=== PATIENT | female | born 1985 | race Caucasian/White ===

== ENCOUNTER 2018-02-14 08:14 | Day surgery (SDC) | payer SELFPAY, BC ==
[~2018-02-14 08:14] MED LIST: Acetaminophen 1,000 MG in Premix Bag 1 BAG IV SCH; Acetaminophen/HYDROcodone 325-5 MG Tab PO PRN; BACITRACIN IRR SCH; Bupivacaine 0.25%/EPINEPHrine 1:200,000 10 ML SDV INJECT ONE; Gentamicin 40 MG/ML 2 ML Vial ONE; Lactated Ringers 1,000 ML IV SCH; Lidocaine 2% 5 ML SDV ONE; Midazolam 1 MG/ML 2 ML SDV ONE; Ondansetron 4 MG/2 ML SDV ONE; Propofol 200 MG/20 ML SDV ONE; Rocuronium 10 MG/ML 10 ML Syringe ONE; SODIUM CHLORIDE 0.9% IRR SCH; Scopolamine 1.5 MG Transdermal Patch TRDERM PRN; ceFAZolin 1,000 MG VIAL ONE; ceFAZolin 2 GM in Premix Bag 1 BAG IV ONE; fentaNYL 250 MCG/5 ML SDV ONE
--- NOTE | 2018-02-14 08:41 | PCM.PREANE ---
Preanesthetic Assessment - Anesthesia/Transfusion/Family Hx Anesthesia History: Prior Anesthesia Without Reaction Family History of Anesthesia Reaction: No Transfusion History: No Prior Transfusion(s) - Review of Systems General: No Symptoms Pulmonary: No Symptoms Cardiovascular: No Symptoms Gastrointestinal: No Symptoms Neurological: No Symptoms Other: Reports: None - Physical Assessment NPO Status Date: 02/13/18 Height: 1.8 m Weight: 73.028 kg ASA Class: 2 Mental Status: Alert & Oriented x3 Airway Class: Mallampati = 1 Dentition: Reports: Normal Dentition ROM/Head Extension: Full Lungs: Clear to Auscultation, Normal Respiratory Effort Cardiovascular: Regular Rate, Regular Rhythm - Allergies Allergies/Adverse Reactions: Allergies Allergy/AdvReac Type Severity Reaction Status Date / Time No Known Allergies Allergy Verified 02/09/18 08:30 - Anesthesia Plan Pre-Op Medication Ordered: None - Acknowledgements Anesthesia Type Planned: General Anesthesia Pt an Appropriate Candidate for the Planned Anesthesia: Yes Alternatives and Risks of Anesthesia Discussed w Pt/Guardian: Yes Pt/Guardian Understands and Agrees with Anesthesia Plan: Yes Additional Comments: PMH: gerd PreAnesthesia Questionnaire HEENT History: Reports: Other (See Below) Other HEENT History: wears glasses/contacts Gastrointestinal History: Reports: GERD Musculoskeletal History: Reports: None Psychiatric History: Reports: Anxiety, Depression - Past Surgical History Head Surgeries/Procedures: Reports: None HEENT Surgical History: Reports: Oral Surgery Musculoskeletal Surgical History: Reports: Arthroscopic Knee - SUBSTANCE USE Smoking Status *Q: Never Smoker Recreational Drug Use History: No - HOME MEDS Home Medications: Home Meds Escitalopram [Lexapro] 10 mg PO DAILY 02/09/18 [History] Omeprazole Magnesium [Prilosec Otc] 20 mg PO BID 02/09/18 [History] - CURRENT (IN HOUSE) MEDS Current Meds: Current Medications Hydrocodone Bitart/Acetaminophen ([employer] 325-5 Mg) 1 tab PO Q4H PRN PRN Reason: Pain Bacitracin 50,000 units/ (Sodium Chloride) 1,000 mls @ 71.99 mls/hr IRR ONETIME PHYLICIA Lactated Ringer's (Ringers, Lactated) 1,000 mls @ 125 mls/hr IV ASDIRECTED PHYLICIA Acetaminophen 1,000 mg/ Premix 100 mls @ 400 mls/hr IV .ONETIME PHYLICIA Scopolamine (Transderm-Scop) 1.5 mg TRDERM .ONCE PRN PRN Reason: Post Op Nausea Discontinued Medications Bupivacaine HCl/Epinephrine Bitart (Marcaine 0.25%/Epinephrine 1:200,000) 10 ml INJECT ONETIME ONE Stop: 02/14/18 08:01 Cefazolin Sodium (Ancef) 2,000 mg .XX ONETIME ONE Stop: 02/14/18 08:01 Fentanyl (Sublimaze) Confirm Administered Dose 250 mcg .ROUTE .STK-MED ONE Stop: 02/14/18 07:29 Gentamicin Sulfate (Gentamicin) 80 mg .XX ONETIME ONE Stop: 02/14/18 08:01 Cefazolin Sodium/Dextrose 2 gm (/ Premix) 50 mls @ 100 mls/hr IV ONETIME ONE Stop: 02/14/18 08:29 Lidocaine (Xylocaine-Mpf 2%) Confirm Administered Dose 5 ml .ROUTE .STK-MED ONE Stop: 02/14/18 07:28 Midazolam HCl (Versed 1 Mg/Ml) Confirm Administered Dose 2 mg .ROUTE .STK-MED ONE Stop: 02/14/18 07:28 Ondansetron HCl (Zofran) Confirm Administered Dose 4 mg .ROUTE .STK-MED ONE Stop: 02/14/18 07:28 Propofol (Diprivan 20 Ml) Confirm Administered Dose 200 mg .ROUTE .STK-MED ONE Stop: 02/14/18 07:28 Rocuronium [place] (Zemuron) Confirm Administered Dose 100 mg .ROUTE .STK-MED ONE Stop: 02/14/18 07:28
[2018-02-14] MEDS ORDERED: ceFAZolin/Dextrose,Iso-Osmotic 2 GM/50 ML Duplex Bag IV ONE (08:52)
[2018-02-14] MEDS ORDERED: Dexamethasone 4 MG/ML 5 ML MDV ONE (09:30)
[2018-02-14] MEDS ORDERED: diphenhydrAMINE 50 MG/ML SDV ONE (09:30)
[2018-02-14] MEDS ORDERED: HYDROmorphone 2 MG/ML SDV ONE (09:34)
[2018-02-14] MEDS ORDERED: Ketorolac 30 MG/ML SDV ONE (09:38)
[2018-02-14] MEDS ORDERED: fentaNYL 100 MCG/2 ML SDV IVPUSH PRN (09:58)
--- NOTE | 2018-02-14 12:04 | PCM48HPAN ---
Post Anesthesia Note - EVALUATION WITHIN 48HRS OF ANESTHETIC Vital Signs in Normal Range: Yes Patient Participated in Evaluation: Yes Respiratory Function Stable: Yes Airway Patent: Yes Cardiovascular Function Stable: Yes Hydration Status Stable: Yes Pain Control Satisfactory: Yes Nausea and Vomiting Control Satisfactory: Yes Mental Status Recovered: Yes Resp Rate: 13
--- NOTE | 2018-02-14 12:04 | PCM.POSTAN ---
POST ANESTHESIA ASSESSMENT - MENTAL STATUS Mental Status: Alert, Oriented - RESPIRATORY Respiratory Status: Respiratory Rate WNL, Airway Patent, O2 Saturation Stable - CARDIOVASCULAR CV Status: Pulse Rate WNL, Blood Pressure Stable - GASTROINTESTINAL GI Status: No Symptoms - POST OP HYDRATION Hydration Status: Adequate & Stable
--- NOTE | 2018-02-21 14:14 | PCM.OPNOTE ---
- General Post-Op/Procedure Note Date of Surgery/Procedure: 02/14/18 Operative Procedure(s): bilateral silicone subglandular breast augmentation Pre Op Diagnosis: cosmetic Post-Op Diagnosis: Same Anesthesia Technique: General ET Tube, Local Primary Surgeon: Amelia Camacho Complications: None Condition: Good
--- NOTE | 2018-02-22 08:56 | OR ---
SURGEON: MIGUEL GARCIA MD DATE OF PROCEDURE: 02/14/2018 PREOPERATIVE DIAGNOSIS: Desire for bilateral breast augmentation. POSTOPERATIVE DIAGNOSIS: Desire for bilateral breast augmentation. PROCEDURE: Bilateral silicone subglandular breast augmentation. ANESTHESIA: General ET tube with local. INDICATIONS: Ms. Ching is a 32-year-old female, seen today in evaluation for bilateral breast augmentation. Risks and benefits were discussed with her in detail including, but not limited to, bleeding, infection, damage to underlying or overlying structures, possible need for future interventions, and possible scarring. She does understand the implants or medical devices, and we will add at some point in her lifetime, actually failed. She has chosen bilateral silicone breast implants in the subglandular plane. All questions answered and informed consent obtained. PROCEDURE IN DETAIL: After informed consent were obtained and placed on the chart, the patient was brought to the operating theater and laid in the supine position. After adequate general anesthesia was obtained, the area was prepped and draped and a time-out was completed to confirm side and site. Attention was then paid to the breast borders. They were marked clearly with an inframammary fold incision marked at half the distance of the circumference of the implant. This was positioned in the inframammary fold, and the area was anesthetized with 0.25% Marcaine with epinephrine in a field block. After adequate anesthesia, a 15 blade was used to dissect through the skin and Bovie electrocautery through the subcutaneous tissues until breach of the subglandular plane. Dissection was carried in the medial and lateral positions in order to allow development of the pocket. Once the pocket was developed, meticulous hemostasis was obtained, the area was copiously irrigated with antibiotic solution and packed with epinephrine-soaked laps. While the epinephrine-soaked laps were sitting on the right side, attention was then paid to the dissection on the left. A symmetric dissection was undertaken using first a 15 blade through the skin and then Bovie electrocautery through the subcutaneous tissues. Under direct visualization and extended to Bovie, and lighted mammary retractors were used to further dissect the pocket. Once completed, meticulous hemostasis was obtained, the area was copiously irrigated with antibiotic solution and packed with epinephrine-soaked laps. Attention was then paid back to the right side. The epinephrine-soaked laps were removed and a 3-0 PDS suture was used to anchor the inferomedial and inferolateral breast poles to prevent migration of the implant here. Once this was completed, a no-touch technique with a Clifton funnel was used to place the silicone implants in the subglandular plane with Prateek retraction. Once adequately placed, appropriate position was confirmed and the second breast implant was placed on the left side in the same no-touch technique fashion. Once adequately placed on bilateral sides, the patient was sat up into a sitting position to ensure symmetry. Once symmetry was appreciated, the patient was laid back down into the supine position, and the wounds were closed using deep 3 - 0 Monocryl for the fascia, deep 3-0 Monocryl for the dermis, and a running 4-0 subcuticular for the skin. The wound was then dressed with Steri-Strips, fluffs, and a compression bra. The patient tolerated this well. All counts and needles were correct at the end of the case. IMPLANT INFORMATION: SRM 485 SN Left [id number] Right [id number] FOLLOWUP INSTRUCTIONS: The patient will see us tomorrow in clinic sooner if any problems, questions, or concerns. Prescription for pain control was provided as well as nausea medication. RENETTA / JAY /[id number] SELINA
== END 2018-02-14 12:20 | disposition home or self-care (01) ==
LOC: MW.SDS 08:14
PROVIDERS: ATTEND Plastic Surgery
DX: Z41.1 Encounter for cosmetic surgery (principal); K21.9 Gastro-esophageal reflux disease without esophagitis; F32.9 Major depressive disorder, single episode, unspecified; Z79.899 Other long term (current) drug therapy; Z88.8 Allergy status to other drugs, medicaments and biological substances
CPT/HCPCS: 19325; 81025; A9270; C1789; J0690; J1100; J1170; J1200; J1885; J2250; J2405; J3010; J7120; 00402; J2704

== ENCOUNTER 2018-12-27 09:11 | Day surgery (SDC) | payer BC ==
[~2018-12-27 09:11] MED LIST changes: -Acetaminophen 1,000 MG in Premix Bag 1 BAG IV SCH; -Acetaminophen/HYDROcodone 325-5 MG Tab PO PRN; -BACITRACIN IRR SCH; -Bupivacaine 0.25%/EPINEPHrine 1:200,000 10 ML SDV INJECT ONE; -Gentamicin 40 MG/ML 2 ML Vial ONE; -Ondansetron 4 MG/2 ML SDV ONE; -Rocuronium 10 MG/ML 10 ML Syringe ONE; -SODIUM CHLORIDE 0.9% IRR SCH; -Scopolamine 1.5 MG Transdermal Patch TRDERM PRN; -ceFAZolin 1,000 MG VIAL ONE; -ceFAZolin 2 GM in Premix Bag 1 BAG IV ONE; -fentaNYL 250 MCG/5 ML SDV ONE
--- NOTE | 2018-12-27 10:25 | PCM.PREANE ---
Preanesthetic Assessment - Anesthesia/Transfusion/Family Hx Anesthesia History: Prior Anesthesia Without Reaction Other Type of Anesthesia Reaction Comment: "aunt had problems with anesthesia, but unsure what", "will ask her" Family History of Anesthesia Reaction: No Transfusion History: No Prior Transfusion(s) Intubation History: Unknown - Review of Systems General: No Symptoms Pulmonary: No Symptoms Cardiovascular: No Symptoms Gastrointestinal: No Symptoms, Other (follow up of esophagitis and hiatal hernia ) Neurological: No Symptoms Other: Reports: None - Physical Assessment NPO Status Date: 12/27/18 NPO Status Time: 06:30 O2 Sat by Pulse Oximetry: 100 Respiratory Rate: 18 Vital Signs: Last Vital Signs Temp 36.8 C 12/27/18 09:30 Pulse 67 12/27/18 09:30 Resp 18 12/27/18 09:30 BP 128/80 12/27/18 09:30 Pulse Ox 100 12/27/18 09:30 Height: 1.8 m Weight: 75.296 kg ASA Class: 2 Mental Status: Alert & Oriented x3 Airway Class: Mallampati = 1 Dentition: Reports: Normal Dentition, [place](s) (x1 left lower - lucy) Thyro-Mental Finger Breadths: 3 Mouth Opening Finger Breadths: 3 ROM/Head Extension: Full Lungs: Clear to Auscultation, Normal Respiratory Effort Cardiovascular: Regular Rate, Regular Rhythm - Lab Values: Laboratory Last Values Urine HCG, Qual NEGATIVE (NEGATIVE) 12/27/18 09:12 - Allergies Allergies/Adverse Reactions: Allergies Allergy/AdvReac Type Severity Reaction Status Date / Time No Known Allergies Allergy Verified 12/24/18 07:40 - Blood Blood Available: No - Anesthesia Plan Pre-Op Medication Ordered: None - Acknowledgements Anesthesia Type Planned: MAC Pt an Appropriate Candidate for the Planned Anesthesia: Yes Alternatives and Risks of Anesthesia Discussed w Pt/Guardian: Yes Pt/Guardian Understands and Agrees with Anesthesia Plan: Yes PreAnesthesia Questionnaire HEENT History: Reports: Other (See Below) Other HEENT History: wears glasses/contacts Cardiovascular History: Reports: None Respiratory History: Reports: None Gastrointestinal History: Reports: GERD, Other (See Below) (h/o gastric ulcer, h /o dysphagia) Genitourinary History: Reports: None [employer] History: Reports: Musculoskeletal History: Reports: None Neurological History: Reports: None Psychiatric History: Reports: Anxiety, Depression Endocrine/Metabolic History: Reports: None Hematologic History: Reports: None Immunologic History: Reports: None Oncologic (Cancer) History: Reports: None Dermatologic History: Reports: None - Past Surgical History Head Surgeries/Procedures: Reports: None HEENT Surgical History: Reports: Oral Surgery Other HEENT Surgeries/Procedures: [place] tooth extraction Cardiovascular Surgical History: Reports: None Respiratory Surgical History: Reports: None GI Surgical History: Reports: EGD (06/2017) Female Surgical History: Reports: Breast Implant Endocrine Surgical History: Reports: None Neurological Surgical History: Reports: None Musculoskeletal Surgical History: Reports: Arthroscopic Knee Other Musculoskeletal Surgeries/Procedures:: Left patella reconstruction Dermatological Surgical History: Reports: None - SUBSTANCE USE Smoking Status *Q: Never Smoker Recreational Drug Use History: No - HOME MEDS Home Medications: Home Meds Omeprazole Magnesium [Prilosec Otc] 20 mg PO DAILY 02/09/18 [History] Multivitamin [Multivitamins] 1 tab PO DAILY 12/24/18 [History] - CURRENT (IN HOUSE) MEDS Current Meds: Current Medications Lactated Ringer's (Ringers, Lactated) 1,000 mls @ 100 mls/hr IV ASDIRECTED PHYLICIA Last Admin: 12/27/18 09:50 Dose: 100 mls/hr Discontinued Medications Lidocaine (Xylocaine-Mpf 2%) Confirm Administered Dose 5 ml .ROUTE .STK-MED ONE Stop: 12/27/18 07:55 Midazolam HCl (Versed 1 Mg/Ml) Confirm Administered Dose 2 mg .ROUTE .STK-MED ONE Stop: 12/27/18 07:56 Propofol (Diprivan 20 Ml) Confirm Administered Dose 400 mg .ROUTE .STK-MED ONE Stop: 12/27/18 07:55
--- NOTE | 2018-12-27 11:32 | PCM.OPNOTE ---
- General Post-Op/Procedure Note Date of Surgery/Procedure: 12/27/18 Operative Procedure(s): EGD with biopsies of antrum, fundus, and esophagus Findings: Hiatal hernia with no evidence of esophagitis Pre Op Diagnosis: Hiatal hernia with reflux Post-Op Diagnosis: same Anesthesia Technique: MAC Primary Surgeon: Bonnie Farley Numerical Control Machine Operator: Shannon Carreon Condition: Good
--- NOTE | 2018-12-27 11:33 | PCM.OPNOTE ---
- General Post-Op/Procedure Note Date of Surgery/Procedure: 12/27/18 Operative Procedure(s): Diagnostic EGD Findings: Hiatal hernia with reflux. No sign of esophagitis Pre Op Diagnosis: Hiatal hernia with reflux and esophagitis Post-Op Diagnosis: Hiatal hernia with reflux. Anesthesia Technique: [facility] [place] Primary Surgeon: Bonnie Farley Condition: Good
--- NOTE | 2018-12-27 18:30 | OR ---
SURGEON: JOHN JOAQUIN MD DATE OF PROCEDURE: 12/27/2018 PREOPERATIVE DIAGNOSIS: Hiatal hernia with reflux and esophagitis. POSTOPERATIVE DIAGNOSIS: Hiatal hernia with reflux. PROCEDURE PERFORMED: Diagnostic esophagogastroduodenoscopy. ANESTHESIA: MAC. INSTRUMENT USED: Olympus endoscope. EXTENT OF EXAM: To the second portion of duodenum. PREPARATION: Good. LIMITATIONS: None. INDICATION FOR EXAMINATION: The patient is a 33-year-old female who presents for a repeat EGD. During her last , she was found to have a hiatal hernia and severe erosive esophagitis. Since giving , she has had no further symptoms, but is concerned about ongoing reflux. We discussed the procedure, expected perioperative course, and risks including bleeding or perforation. The patient verbalized understanding and wishes to proceed. PROCEDURE IN DETAIL: The patient was brought into the endoscopy suite and placed in a beach chair position. A time-out was completed verifying the patient's name, age, date of , allergies, and procedure to be performed. A bite block was placed in the patient's mouth. Monitored anesthesia care was induced and continuous oxygen was provided via nasal cannula throughout the procedure. After adequate sedation was achieved, a well lubricated endoscope was placed in the patient's mouth and advanced under direct visualization to the level of the second portion of duodenum. This appeared normal and a photograph was taken. The scope was then straightened out and fully withdrawn while examining the color, texture, anatomy, and integrity mucosa of the upper GI tract. The duodenum was free of pathology. The scope was then brought in the stomach and a photograph taken of the pylorus as well as the GE junction. The patient was noted to have a hiatal hernia on retroflexion of the scope within the stomach. The gastric mucosa itself appeared free of inflammation or ulceration. Biopsies were taken of the gastric antrum, body, and fundus, and sent for histologic review and H. pylori testing. The scope was then brought into the hiatal hernia sac. This appeared to extend for 2-3 cm. A photograph was taken of this. A photograph was also taken of the Z-line. It was mildly irregular along one edge, but overall appeared normal. The scope was brought into the distal esophagus and a photograph was taken of the Z-line. A biopsy was taken 1 cm above the Z-line and sent to pathology, labeled esophageal biopsy. Overall, her distal esophagus appeared to be free of any signs of inflammation or ulceration. The remainder of the esophagus was free of pathology. The scope was removed and this procedure terminated. The patient tolerated it well and was taken to PACU in stable condition. ENDOSCOPIC DIAGNOSIS: Hiatal hernia with reflux. RECOMMENDATIONS: Follow up in clinic in 2 weeks. NAKUL THOMPSON /[id number]
== END 2018-12-27 13:00 | disposition home or self-care (01) ==
LOC: MW.SDS 09:11
PROVIDERS: ATTEND Surgery
DX: K21.0 Gastro-esophageal reflux disease with esophagitis (principal); K44.9 Diaphragmatic hernia without obstruction or gangrene; Z79.899 Other long term (current) drug therapy
CPT/HCPCS: 43239; 81025; J2001; J2250; J2704; J7120

== ENCOUNTER 2021-03-07 10:41 | Emergency (ER) | payer BC ==
--- NOTE | 2021-03-07 11:29 | EDM.PDOC ---
ED HPI GENERAL MEDICAL PROBLEM - General Chief Complaint: ENT Problem Stated Complaint: SINUS INFECTION Time Seen by Provider: 03/07/21 10:54 Source of Information: Reports: Patient History Limitations: Reports: No Limitations - History of Present Illness INITIAL COMMENTS - FREE TEXT/NARRATIVE: HISTORY AND PHYSICAL: History of present illness: Patient is a 35-year-old female who presents to the emergency department secondary to a 3-day history of sinus pain and pressure/runny nose and sneezing. Patient reports that about a week ago she started having allergy symptoms with sneezing and coughing but then her symptoms progressed to more sinus congestion and pressure the past 3 days. Patient has been taking Zyrtec with little relief. Patient states that she has had sinus infections in the past and was treated with antibiotics. Patient does endorse a history of seasonal allergies. Patient denies fever, chills, chest pain, shortness of breath, or cough. Denies headache, neck stiff ness, change in vision, syncope, or near syncope. Denies nausea, vomiting, abdominal pain, diarrhea, constipation, or dysuria. Has not noted any blood in urine or stool. Patient has been eating and drinking appropriately. Review of systems: As per history of present illness and below otherwise all systems reviewed and negative. Past medical history: As per history of present illness and as reviewed below otherwise noncontributory. Surgical history: As per history of present illness and as reviewed below otherwise noncontributory. Social history: See social history for further information Family history: As per history of present illness and as reviewed below otherwise noncontributory. Physical exam: General: Patient is alert, oriented, and in no acute distress. Patient sitting comfortably on exam table. Patient's vitals are stable and reviewed by me. HEENT: Atraumatic, normocephalic, pupils equal and reactive bilaterally, negative for conjunctival pallor or scleral icterus, mucous membranes moist, TMs normal bilaterally, throat clear, neck supple, nontender, trachea midline. No drooling or trismus noted. No meningeal signs. No hot potato voice noted. Pat ient is mildly tender to palpation over maxillary sinuses bilaterally with noted nasal congestion, erythematous and edematous turbinates noted bilaterally. Lungs: Clear to auscultation, breath sounds equal bilaterally, chest nontender. Heart: S1S2, regular rate and rhythm without overt murmur Abdomen: Soft, nondistended, nontender. Negative for masses or hepatosplenomegaly. Negative for costovertebral tenderness. Pelvis: Stable nontender. Genitourinary: Deferred. Rectal: Deferred. Skin: Intact, warm, dry. No lesions or rashes noted. Extremities: Atraumatic, negative for cords or calf pain. Neurovascular unremarkable. Neuro: Awake, alert, oriented. Cranial nerves II through XII unremarkable. Cerebellum unremarkable. Motor and sensory unremarkable throughout. Exam nonfocal. Notes: Discussed with patient the signs and symptoms that would prompt return to the emergency department. Discussed with patient the importance of follow-up with primary care. Voices understanding and is agreeable to plan of care. Denies any further questions or concerns at this time. Diagnostics: None Therapeutics: None Prescription: Medrol dose pack Impression: Sinusitis Plan: 1. Take medication as prescribed. Also use [id number] Flonase as directed and as discussed. 2. You can alternate ibuprofen and Tylenol as directed for pain and discomfort. 3. Follow-up with a primary care provider as discussed. Return to the ED as needed and as discussed. Definitive disposition and diagnosis as appropriate pending reevaluation and review of above. - Related Data Allergies Allergy/AdvReac Type Severity Reaction Status Date / Time No Known Allergies Allergy Verified 12/24/18 07:40 Home Meds: Home Meds Omeprazole Magnesium [Prilosec Otc] 20 mg PO DAILY 02/09/18 [History] Multivitamin [Multivitamins] 1 tab PO DAILY 12/24/18 [History] methylPREDNISolone [Medrol] 4 mg PO ASDIRECTED #1 dosepk 03/07/21 [Rx] Past Medical History HEENT History: Reports: Other (See Below) Other HEENT History: wears glasses/contacts Cardiovascular History: Reports: None Respiratory History: Reports: None Gastrointestinal History: Reports: GERD, Other (See Below) (h/o gastric ulcer, h/o dysphagia) Genitourinary History: Reports: None 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: Musculoskeletal History: Reports: None Neurological History: Reports: None Psychiatric History: Reports: Anxiety, Depression Endocrine/Metabolic History: Reports: None Hematologic History: Reports: None Immunologic History: Reports: None Oncologic (Cancer) History: Reports: None Dermatologic History: Reports: None - Past Surgical History Head Surgeries/Procedures: Reports: None HEENT Surgical History: Reports: Oral Surgery Other HEENT Surgeries/Procedures: wisdon tooth extraction Cardiovascular Surgical History: Reports: None Respiratory Surgical History: Reports: None GI Surgical History: Reports: EGD (06/2017) Female Surgical History: Reports: Breast Implant Endocrine Surgical History: Reports: None Neurological Surgical History: Reports: None Musculoskeletal Surgical History: Reports: Arthroscopic Knee Other Musculoskeletal Surgeries/Procedures:: Left patella reconstruction Dermatological Surgical History: Reports: None ED ROS GENERAL - Review of Systems Review Of Systems: Comprehensive ROS is negative, except as noted in HPI. ED EXAM, GENERAL - Physical Exam Exam: See Below (see dictation) Course - Vital Signs Last Recorded V/S: Last Vital Signs Temp 97.4 F 03/07/21 11:22 Pulse 92 03/07/21 11:22 Resp 18 03/07/21 11:22 BP 127/77 03/07/21 11:22 Pulse Ox 100 03/07/21 11:22 Departure - Departure Time of Disposition: 11:46 Disposition: Home, Self-Care 01 Clinical Impression: Sinusitis Qualifiers: Sinusitis location: unspecified location Chronicity: acute Recurrence: not specified as recurrent Qualified Code(s): J01.90 - Acute sinusitis, unspecified - Discharge Information Prescriptions: methylPREDNISolone [Medrol] 4 mg PO ASDIRECTED #1 dosepk Instructions: Sinusitis, Adult, [id number] Referrals: Nehemiah Ordonez MD [Primary Care Provider] - Forms: ED Department Discharge Additional Instructions: The following information is given to patients seen in the emergency department who are being discharged to home. This information is to outline your options for follow-up care. We provide all patients seen in our emergency department with a follow-up referral. The need for follow-up, as well as the timing and circumstances, are variable depending upon the specifics of your emergency department visit. If you don't have a primary care physician on staff, we will provide you with a referral. We always advise you to contact your personal physician following an emergency department visit to inform them of the circumstance of the visit and for follow-up with them and/or the need for any referrals to a consulting specialist. The emergency department will also refer you to a specialist when appropriate. This referral assures that you have the opportunity for follow-up care with a specialist. All of these measure are taken in an effort to provide you with optimal care, which includes your follow-up. Under all circumstances we always encourage you to contact your private physician who remains a resource for coordinating your care. When calling for follow-up care, please make the office aware that this follow-up is from your recent emergency room visit. If for any reason you are refused follow-up, please contact the [facility] Emergency Department at and asked to speak to the emergency department charge nurse. [facility] Primary [facility] [address] [place] [id number] [facility] [address] [place] [id number] 1. Take medication as prescribed. Also use [id number] Flonase as directed and as discussed. 2. You can alternate ibuprofen and Tylenol as directed for pain and discomfort. 3. Follow-up with a primary care provider as discussed. Return to the ED as needed and as discussed. Sepsis Event Note (ED) - Focused Exam Vital Signs: Vital Signs Temp Pulse Resp BP Pulse Ox 03/07/21 11:22 97.4 F 92 18 127/77 100
== END 2021-03-07 11:50 | disposition home or self-care (01) ==
LOC: MW.ED 10:41
DX: J01.90 Acute sinusitis, unspecified (principal); K21.9 Gastro-esophageal reflux disease without esophagitis; Z79.899 Other long term (current) drug therapy
CPT/HCPCS: 99283

== ENCOUNTER 2022-07-26 04:56 | Inpatient (IN) | payer BC ==
[2022-07-26] MEDS ORDERED: Sodium Chloride 0.9% 2.5 ML Syringe FLUSH PRN (05:30)
[2022-07-26] MEDS ORDERED: Carboprost Tromethamine 250 MCG/1 ML Amp IM PRN (05:30)
[2022-07-26] MEDS ORDERED: Butorphanol 1 MG/ML SDV IVPUSH PRN (05:30)
[2022-07-26] MEDS ORDERED: Lidocaine 1% 50 ML MDV INJECT PRN (05:30)
[2022-07-26] MEDS ORDERED: Oxytocin/0.9 % Sodium Chloride 30 UNIT/500 ML BAG IV SCH ×2 (05:30)
[2022-07-26] MEDS ORDERED: Sodium Chloride 0.9% 20 ML SDV IV PRN (05:30)
[2022-07-26] MEDS ORDERED: Terbutaline 1 MG/ML SDV SUBCUT PRN (05:30)
[2022-07-26] MEDS ORDERED: Misoprostol 200 MCG Tab PO PRN (05:30)
[2022-07-26] MEDS ORDERED: Ondansetron 4 MG/2 ML SDV IVPUSH PRN (05:30)
[2022-07-26] MEDS ORDERED: Sodium Chloride 0.9% 10 ML Syringe FLUSH PRN (05:30)
[2022-07-26] MEDS ORDERED: Tranexamic Acid 1,000 MG in Sodium Chloride 0.9% 100 ML IV PRN ×2 (05:30→16:36)
[2022-07-26] MEDS ORDERED: Water For Irrigation,Sterile 1,000 ML Container IRR PRN (05:30)
[2022-07-26] MEDS ORDERED: Methylergonovine 0.2 MG/1 ML Amp IM PRN ×2 (05:30→16:36)
[2022-07-26] MEDS: Lactated Ringers 1,000 ML IV SCH ×4 (05:45→11:09)
[2022-07-26] MEDS ORDERED: Ropivacaine/PF 400 MG/200 ML PCA ONE (10:23)
[2022-07-26] MEDS ORDERED: ePHEDrine 50 MG/ML SDV IVPUSH PRN (10:41)
[2022-07-26] MEDS ORDERED: Phenylephrine HCl In 0.9% NaCl 1 MG/10 ML Vial IVPUSH SCH (10:45)
[2022-07-26] MEDS ORDERED: Ropivacaine HCl/PF 400 MG in Premix Bag 1 BAG EPIDUR SCH (10:45)
[2022-07-26] MEDS ORDERED: Acetaminophen 500 MG Tab PO PRN ×2 (16:36)
[2022-07-26] MEDS ORDERED: Lanolin 100% Cream 7 GM Tube TOP PRN (16:36)
[2022-07-26] MEDS ORDERED: Docusate Sodium 100 MG Cap PO PRN (16:36)
[2022-07-26] MEDS ORDERED: Witch Hazel Medicated Pads 40/Jar TOP PRN (16:36)
[2022-07-26] MEDS ORDERED: Benzocaine/Menthol 20%-0.5% Spray 78 GM Cannister TOP PRN (16:36)
[2022-07-26] MEDS ORDERED: Ibuprofen 400 MG Tab PO PRN (16:36)
[2022-07-26] MEDS ORDERED: Bisacodyl 10 MG Supp RECTAL PRN (16:36)
[2022-07-26] MEDS: Ibuprofen 800 MG Tab PO PRN (18:55)
[2022-07-27] MEDS: Ibuprofen 800 MG Tab PO PRN (01:57)
[2022-07-27] MEDS ORDERED: Omeprazole 20 MG Cap.CR PO SCH (07:30)
[2022-07-27] MEDS ORDERED: Prenatal Multivitamin with Calcium/Folic Acid/Iron Tab PO SCH (09:00)
== END 2022-07-27 19:15 | disposition home or self-care (01) | DRG 560 ==
LOC: MW.OBCHECK 04:56 → MW.OB 05:30 → OBSVTOIN 16:14 → MW.OB 21:59
PROVIDERS: ADMIT Obstetrics & Gynecology; ATTEND Obstetrics & Gynecology
PROC: 10E0XZZ Delivery of Products of Conception, External Approach (ICD-10-PCS; principal; 2022-07-26)
PROC: 10907ZC Drainage of Amniotic Fluid, Therapeutic from Products of Conception, Via Natural or Artificial Opening (ICD-10-PCS; 2022-07-26)
PROC: 3E033VJ Introduction of Other Hormone into Peripheral Vein, Percutaneous Approach (ICD-10-PCS; 2022-07-26)
PROC: 3E0R3BZ Introduction of Anesthetic Agent into Spinal Canal, Percutaneous Approach (ICD-10-PCS; 2022-07-26)
PROC: 00HU33Z Insertion of Infusion Device into Spinal Canal, Percutaneous Approach (ICD-10-PCS; 2022-07-26)
DX: O80 Encounter for full-term uncomplicated delivery (principal); Z3A.39 39 weeks gestation of pregnancy; Z37.0 Single live birth
CPT/HCPCS: 01967; 36415; 51702; 59025; 59409; 82803; 85014; 85018; 85027; 86592; 86850; 86900; 86901; A9270-GY; J2590; J2795; J7120; U0002